=== PATIENT | male | born 1970 | race Caucasian/White ===

== ENCOUNTER 2018-03-30 09:40 | Inpatient (IN) | payer OTHER ==
[2018-03-30] MEDS ORDERED: DIPHENHYDRAMINE 50 MG INJ IV (11:30)
[2018-03-30] MEDS ORDERED: OXYCODONE/ACETAMINOPHEN (5/325) TAB PO ×2 (11:30)
[2018-03-30] MEDS ORDERED: IPRATROPIUM (NEB) 0.5 MG/2.5 ML AMP HHN (11:30)
[2018-03-30] MEDS ORDERED: HYDROmorphONE 1 MG/5 ML IV SYRINGE IV ×2 (11:30)
[2018-03-30] MEDS ORDERED: LABETALOL HCL 20MG INJ IV (11:30)
[2018-03-30] MEDS ORDERED: TRIMETHOBENZAMIDE 100 MG/ML VIAL IM (11:30)
[2018-03-30] MEDS ORDERED: ALBUTEROL 0.083% (NEB) 2.5 MG/3 ML AMP HHN (11:30)
[2018-03-30] MEDS ORDERED: EPHEDrine SULFATE 50 MG/5 ML SYG IV (11:30)
[2018-03-30] MEDS ORDERED: MEPERIDINE 25 MG INJ IV (11:30)
[2018-03-30] MEDS ORDERED: FENTAnyl 50 MCG/ML VIAL IV ×2 (11:30)
[2018-03-30] MEDS ORDERED: MIDAZOLAM 1 MG/ML 2 ML INJ IV (11:30)
[2018-03-30] MEDS ORDERED: hydrALAzine 20 MG INJ IV (11:30)
[2018-03-30] MEDS ORDERED: PROPOFOL 20 ML (11:37)
[2018-03-30] MEDS ORDERED: ROCURONIUM 50 MG INJ (11:37)
[2018-03-30] MEDS ORDERED: GLYCOPYRROLATE 0.4 MG INJ (11:37)
[2018-03-30] MEDS ORDERED: MIDAZOLAM 1 MG/ML 2 ML INJ (11:37)
[2018-03-30] MEDS ORDERED: NEOSTIGMINE 3 MG/3 ML SYRINGE (11:37)
[2018-03-30] MEDS ORDERED: CEFAZOLIN 1 GM INJ (11:37)
[2018-03-30] MEDS ORDERED: ONDANSETRON 4 MG INJ (11:37)
[2018-03-30] MEDS ORDERED: DEXAMETHASONE 4 MG/ML 1 ML INJ (11:37)
[2018-03-30] MEDS ORDERED: CEPASTAT LOZENGE MT (12:00)
[2018-03-30] MEDS ORDERED: BISACODYL 10 MG SUPP PR (12:00)
[2018-03-30] MEDS ORDERED: ACETAMINOPHEN 325 MG TAB PO (12:00)
[2018-03-30] MEDS ORDERED: AL HYDROX/MG HYDROX/SIMETH 30 ML CUP PO (12:00)
[2018-03-30] MEDS ORDERED: NALOXONE (0.4 MG/ML) INJ IV (12:00)
[2018-03-30] MEDS ORDERED: HYDROmorphONE 0.5 MG/0.5 ML SYG IV (12:00)
[2018-03-30] MEDS ORDERED: ZOLPIDEM 5 MG TAB PO (12:00)
[2018-03-30] MEDS ORDERED: SURGIFOAM POWDER 1 GM KIT (12:13)
[2018-03-30] MEDS: THROMBIN 5000 UNIT VIAL (12:13)
[2018-03-30] MEDS: POLYMYXIN/BACITRACIN 1L IRRIG (12:13)
[2018-03-30] MEDS: CA CHLORIDE 10% 10 ML SYRINGE (12:13)
[2018-03-30] MEDS: HEPARIN 1000 UNITS/ML 10 ML INJ (12:13)
[2018-03-30] MEDS: BUPIVACAINE 0.25%/EPI (SDV) 30 ML INJ (12:13)
[2018-03-30] MEDS ORDERED: CEFAZOLIN 2 GM/50 ML (PMX) 50 ML IVPB (12:30)
[2018-03-30] MEDS ORDERED: GLUCOSE GEL 15 GRAM TUBE BUCCAL (14:30)
[2018-03-30] MEDS ORDERED: DEXTROSE 50% 50 ML SYRINGE IV ×2 (14:30)
[2018-03-30] MEDS ORDERED: GLUCAGON 1 MG INJ IM (14:30)
[2018-03-30] MEDS ORDERED: GLUCOSE GEL 15 GRAM TUBE PO ×2 (14:30)
[2018-03-30] MEDS: HYDROmorphONE 0.2 MG/ML PCA IV (15:11)
[2018-03-30] MEDS: ONDANSETRON 4 MG INJ IV ×2 (15:16→18:38)
[2018-03-30] MEDS: FENTAnyl 50 MCG/ML VIAL IV (15:16)
[2018-03-30] MEDS: HYDROmorphONE 1 MG/5 ML IV SYRINGE IV (15:48)
[2018-03-30] MEDS: metFORMIN 850 MG TAB PO (18:38)
[2018-03-30] MEDS: 1/2 NS + KCL 20 MEQ 1,000 ML IV ×2 (18:39→21:46)
[2018-03-30] MEDS: CEFAZOLIN 1 GM/50 ML (PMX) 50 ML IVPB (21:02)
[2018-03-30] MEDS: DOCUSATE SODIUM 100 MG CAP PO (21:03)
[2018-03-30] MEDS: INSULIN ASPART [NOVOLOG] 3 ML PEN SC (21:08)
[2018-03-31] MEDS: ACCU-CHEK XX (02:53)
[2018-03-31] MEDS: CYCLOBENZAPRINE 10 MG TAB PO ×2 (04:07→18:31)
[2018-03-31] MEDS: CEFAZOLIN 1 GM/50 ML (PMX) 50 ML IVPB ×2 (04:07→12:17)
[2018-03-31] MEDS: 1/2 NS + KCL 20 MEQ 1,000 ML IV ×2 (04:15→17:49)
[2018-03-31] MEDS: HYDROmorphONE 0.2 MG/ML PCA IV (04:31)
[2018-03-31 05:08] LABS: ADD MAN DIFF? NO
[2018-03-31 05:13] LABS: HEMATOCRIT 38.4 % (42.0-52.0); HEMOGLOBIN 13.4 g/dl (14.0-18.0); LYMPHOCYTES # 0.7 10^3/ul (0.8-2.9); LYMPHOCYTES % 7.3 % (15.0-51.0); MEAN CORPUSCULAR HEMOGLOBIN 29.7 pg (29.0-33.0); MEAN CORPUSCULAR HGB CONC 34.9 g/dl (32.0-37.0); MEAN CORPUSCULAR VOLUME 85.1 fl (82.0-101.0); MEAN PLATELET VOLUME 9.8 fl (7.4-10.4); MONOCYTE # 0.7 10^3/ul (0.3-0.9); MONOCYTES % 7.4 % (0.0-11.0); NEUTROPHIL # 8.3 10^3/ul (1.6-7.5); NEUTROPHILS % 84.8 % (39.0-77.0); PLATELET COUNT 226 10^3/UL (140-415); RED BLOOD COUNT 4.51 10^6/ul (4.70-6.10)
[2018-03-31 05:13] LABS: WHITE BLOOD COUNT 9.8 10^3/ul (4.8-10.8)
[2018-03-31 05:36] LABS: ANION GAP 15 (8-16); BLOOD UREA NITROGEN 13 mg/dl (7-20); CALCIUM 8.9 mg/dl (8.4-10.2); CARBON DIOXIDE 25 mmol/L (21-31); CHLORIDE 100 mmol/L (97-110); CREATININE 0.87 mg/dl (0.61-1.24); GLUCOSE 238 mg/dl (70-220); MAGNESIUM 1.6 mg/dl (1.7-2.5); POTASSIUM 4.9 mmol/L (3.5-5.1); SODIUM 135 mmol/L (135-144)
[2018-03-31] MEDS: PANTOPRAZOLE 40 MG INJ IV (06:16)
[2018-03-31] MEDS ORDERED: INSULIN ASPART [NOVOLOG] 3 ML PEN SC (07:20)
[2018-03-31] MEDS: metFORMIN 850 MG TAB PO ×2 (08:50→18:13)
[2018-03-31] MEDS: DOCUSATE SODIUM 100 MG CAP PO ×2 (08:50→21:36)
[2018-03-31] MEDS: Insulin NOVOLOG SS MILD Algorithm (SS with meals and bedtime) SC ×4 (08:56→21:41)
[2018-03-31] MEDS: INSULIN GLARGINE [LANTus] (100 UNITS/ML) SYG SC (08:57)
[2018-03-31] MEDS: KETOROLAC 30 MG INJ IV ×2 (10:21→13:31)
[2018-03-31] MEDS: OXYCODONE/ACETAMINOPHEN (10/325) TAB PO ×2 (18:31→22:41)
[2018-03-31] MEDS: MAGNESIUM OXIDE 400 MG TAB PO (21:36)
[2018-03-31] MEDS: DIPHENHYDRAMINE 50 MG INJ IV (22:00)
[2018-04-01] MEDS: ACCU-CHEK XX (02:00)
[2018-04-01] MEDS: PANTOPRAZOLE 40 MG INJ IV (06:00)
[2018-04-01] MEDS: MAGNESIUM OXIDE 400 MG TAB PO (08:22)
[2018-04-01] MEDS: metFORMIN 850 MG TAB PO (08:22)
[2018-04-01] MEDS: DOCUSATE SODIUM 100 MG CAP PO (08:23)
[2018-04-01] MEDS: INSULIN GLARGINE [LANTus] (100 UNITS/ML) SYG SC (08:28)
[2018-04-01] MEDS: Insulin NOVOLOG SS MILD Algorithm (SS with meals and bedtime) SC ×2 (08:30→12:50)
[2018-04-01] MEDS: OXYCODONE/ACETAMINOPHEN (10/325) TAB PO ×4 (08:34→16:52)
[2018-04-01 08:38] LABS: ADD MAN DIFF? NO
[2018-04-01 08:43] LABS: BASOPHILS % 0.2 % (0.0-2.0); EOSINOPHILS # 0.1 10^3/ul (0.0-0.5); EOSINOPHILS % 0.8 % (0.0-7.0); HEMATOCRIT 36.8 % (42.0-52.0); HEMOGLOBIN 12.5 g/dl (14.0-18.0); LYMPHOCYTES # 1.8 10^3/ul (0.8-2.9); MEAN CORPUSCULAR HEMOGLOBIN 29.4 pg (29.0-33.0); MEAN CORPUSCULAR VOLUME 86.6 fl (82.0-101.0); MEAN PLATELET VOLUME 9.8 fl (7.4-10.4); MONOCYTE # 0.9 10^3/ul (0.3-0.9); MONOCYTES % 10.2 % (0.0-11.0); NEUTROPHIL # 6.1 10^3/ul (1.6-7.5); NEUTROPHILS % 68.4 % (39.0-77.0); PLATELET COUNT 195 10^3/UL (140-415); RED BLOOD COUNT 4.25 10^6/ul (4.70-6.10); RED CELL DISTRIBUTION WIDTH 12.8 % (11.5-14.5)
[2018-04-01 09:14] LABS: ALANINE AMINOTRANSFERASE 23 IU/L (13-69); ALBUMIN 3.6 g/dl (3.3-4.9); ALBUMIN/GLOBULIN RATIO 1.24; ALKALINE PHOSPHATASE 38 IU/L (42-121); ANION GAP 11 (8-16); ASPARTATE AMINO TRANSFERASE 31 IU/L (15-46); BILIRUBIN,INDIRECT 0.6 mg/dl (0-1.1); BILIRUBIN,TOTAL 0.6 mg/dl (0.2-1.3); BLOOD UREA NITROGEN 13 mg/dl (7-20); CALCIUM 8.7 mg/dl (8.4-10.2); CARBON DIOXIDE 30 mmol/L (21-31); CHLORIDE 100 mmol/L (97-110); CREATININE 0.88 mg/dl (0.61-1.24); GLUCOSE 219 mg/dl (70-220); MAGNESIUM 1.7 mg/dl (1.7-2.5); POTASSIUM 4.2 mmol/L (3.5-5.1); SODIUM 137 mmol/L (135-144); TOTAL PROTEIN 6.5 g/dl (6.1-8.1)
== END 2018-04-01 17:15 | disposition home or self-care (01) | DRG 520 ==
LOC: REC 09:40 → MS1 16:25
PROVIDERS: Specialist
PROC: 0SB20ZZ Excision of Lumbar Vertebral Disc, Open Approach (ICD-10-PCS; principal; 2018-03-30 12:00)
PROC: 01NB0ZZ Release Lumbar Nerve, Open Approach (ICD-10-PCS; 2018-03-30 12:00)
DX: M51.16 Intervertebral disc disorders with radiculopathy, lumbar region (principal); M48.061 Spinal stenosis, lumbar region without neurogenic claudication
CPT/HCPCS: 72020; 80048; 80053; 82962; 83735; 85025; 86999; 97116; 97161; 97530